=== PATIENT | female | born 2005 | race African-American/Black ===

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

== ENCOUNTER 2024-03-31 16:48 | Emergency (ER) | payer BC, MEDICAID ==
[~2024-03-31] VITALS: Ht 172.7 cm; Wt 105.0 kg
[~2024-03-31 16:48] MED LIST: BENZ1LOZ73 MT; IBUP-2029 MT
[2024-03-31 16:53] VITALS: PULSE 106; O2SAT 99
[2024-03-31 17:00] VITALS: BP 161/89; RESP 18; TEMP 98.8; O2SAT 98
== END 2024-03-31 20:30 | disposition left against medical advice (07) ==
LOC: ER 17:05
DX: R06.02 Shortness of breath (principal); Z53.21 Procedure and treatment not carried out due to patient leaving prior to being seen by health care provider
CPT/HCPCS: Z7610 ×2